=== PATIENT | male | born 1985 | race Asian ===

== ENCOUNTER 2020-12-14 09:42 | Outpatient (CLI) | payer BC | END 2020-12-14 09:43 | disposition home or self-care (01) | LOC: CSHCT 09:42 | PROVIDERS: ATTEND Family Medicine | DX: R31.21 Asymptomatic microscopic hematuria (principal) | CPT/HCPCS: 74176 ==

== ENCOUNTER 2021-08-22 14:36 | Outpatient (CLI) | payer BC | END 2021-08-22 14:37 | disposition home or self-care (01) | LOC: CSHULT 14:36 | PROVIDERS: ATTEND Urology | DX: R31.29 Other microscopic hematuria (principal) | CPT/HCPCS: 76770 ==